=== PATIENT | male | born 1960 | race African-American/Black ===

== ENCOUNTER 2022-02-27 21:36 | Inpatient (IN) | payer OTHER ==
[2022-02-27 22:34] VITALS: BMI 23.3
[2022-02-27] MEDS ORDERED: ACETAMINOPHEN 325 MG TABLET (FP) PO PRN ×2 (23:08)
[2022-02-27] MEDS ORDERED: BENZOCAINE/MENTHOL (CHLORASEPTIC ) LOZENGE MM PRN (23:08)
[2022-02-27] MEDS ORDERED: LOPERAMIDE HCL 2 MG CAPSULE PO PRN (23:08)
[2022-02-27] MEDS ORDERED: guaiFENesin 200 MG/10 ML 10 ML UNIT-DOSE CUPS PO PRN (23:08)
[2022-02-27] MEDS ORDERED: NICOTINE 10 MG CARTRIDGE (INHALER) IH PRN (23:08)
[2022-02-27] MEDS ORDERED: NICOTINE POLACRILEX 2 MG GUM BUC PRN (23:08)
[2022-02-27] MEDS ORDERED: P-EPHED 60MG/TRIPROLIDI 2.5MG TABLET PO PRN (23:08)
[2022-02-27] MEDS ORDERED: IBUPROFEN 400 MG TABLET (FP) PO PRN (23:08)
[2022-02-27] MEDS ORDERED: MAGNESIUM CITRATE 300 ML BOTTLE PO PRN (23:08)
[2022-02-27] MEDS ORDERED: MAG HYDROX/AL HYDROX/SIMETH 30 ML UNIT-DOSE CUP PO PRN (23:08)
[2022-02-27] MEDS ORDERED: ONDANSETRON *ODT* 4 MG TABLET SL PRN (23:08)
[2022-02-27] MEDS ORDERED: DICYCLOMINE HCL 10 MG CAPSULE PO PRN (23:08)
[2022-02-27] MEDS ORDERED: BISMUTH SUBSALICYLATE 524 MG/30 ML PO PRN (23:08)
[2022-02-27] MEDS ORDERED: IBUPROFEN 600 MG TABLET (FP) PO PRN (23:08)
[2022-02-27] MEDS ORDERED: MAGNESIUM HYDROX 2400MG/30ML ORAL SUSPENSION 30 ML CUP PO PRN (23:08)
[2022-02-27] MEDS ORDERED: NICOTINE 7 MG/24 HOURS TOPICAL PATCH TD PRN (23:08)
[2022-02-28] MEDS: hydrOXYzine PAMOATE 25 MG CAPSULE (FP) PO PRN ×3 (03:43→22:11)
[2022-02-28] MEDS: METHOCARBAMOL 500 MG TABLET PO PRN ×3 (03:43→22:11)
[2022-02-28] MEDS: diazePAM 5 MG TABLET PO PRN ×2 (05:38→09:52)
[2022-02-28] MEDS: PRENATAL VITAMINS W/ FOLIC ACID TABLET (FP) PO SCH (09:52)
[2022-02-28] MEDS ORDERED: chlordiazePOXIDE HCL 25 MG CAPSULE PO PRN (12:01)
[2022-02-28] MEDS: chlordiazePOXIDE HCL 25 MG CAPSULE PO SCH ×2 (18:16→22:11)
[2022-02-28] MEDS ORDERED: MELATONIN 5 MG TABLETS PO SCH (22:00)
[2022-02-28] MEDS ORDERED: SUVOREXANT 10 MG TABLET PO PRN (22:00)
[2022-02-28] MEDS ORDERED: TAMSULOSIN HCL 0.4 MG CAP PO SCH (22:00)
[2022-02-28] MEDS ORDERED: QUEtiapine FUMARATE 50 MG TABLET PO SCH (22:00)
[2022-02-28] MEDS ORDERED: THIAMINE HCL 100 MG TABLET (FP) PO SCH (22:00)
[2022-03-01] MEDS: chlordiazePOXIDE HCL 25 MG CAPSULE PO SCH ×3 (06:31→20:01)
[2022-03-01] MEDS: PRENATAL VITAMINS W/ FOLIC ACID TABLET (FP) PO SCH (10:19)
[2022-03-01] MEDS: hydrOXYzine PAMOATE 25 MG CAPSULE (FP) PO PRN (10:19)
[2022-03-01 12:52] LABS: HEMATOCRIT 41.6 % (35.4-49); HEMOGLOBIN 13.9 GM/dL (11.7-16.9); MCH 35.2 pg (25.7-33.7); MCHC 33.4 g/dl (32.0-35.9); MEAN CELL VOLUME 105.4 fl (80-96); MEAN PLT VOLUME 9.2 fl (7.5-11.1); PLATELET COUNT 126 10^3/uL (134-434); RBC 3.95 M/mm3 (4.00-5.60); RDW 14.5 % (11.9-15.9); WHITE BLOOD COUNT 2.9 K/mm3 (4.0-10.0)
[2022-03-01 13:30] LABS: ALBUMIN 3.4 g/dl (3.4-5.0); BLOOD UREA NITROGEN 17.1 mg/dL (7-18); CALCIUM 9.5 mg/dL (8.5-10.1)
[2022-03-01 13:33] LABS: CREATININE 0.8 mg/dL (0.55-1.3)
[2022-03-01 13:35] LABS: BILIRUBIN,TOTAL 0.8 mg/dL (0.2-1); TOT PROT 6.4 g/dl (6.4-8.2)
[2022-03-01 13:51] LABS: HIV INTERPRETATION NEGATIVE (NEGATIVE)
[2022-03-01 19:13] VITALS: BP 112/75; PULSE 77; TEMP 96.9
[2022-03-02] MEDS ORDERED: chlordiazePOXIDE HCL 10 MG CAPSULE PO PRN
[2022-03-02] MEDS ORDERED: chlordiazePOXIDE HCL 10 MG CAPSULE PO SCH (05:00)
[2022-03-03] MEDS ORDERED: chlordiazePOXIDE HCL 10 MG CAPSULE PO SCH (05:00)
[2022-03-04] MEDS ORDERED: chlordiazePOXIDE HCL 10 MG CAPSULE PO ONE (05:00)
== END 2022-03-01 20:34 | disposition left against medical advice (07) | DRG 894 ==
LOC: YASAS 21:36 → Y6N 02-28 01:39
PROVIDERS: ADMIT Allergy & Immunology; ATTEND Allergy & Immunology
PROC: HZ2ZZZZ Detoxification Services for Substance Abuse Treatment (ICD-10-PCS; principal; 2022-02-28)
DX: F10.230 Alcohol dependence with withdrawal, uncomplicated (principal); F17.210 Nicotine dependence, cigarettes, uncomplicated; F10.280 Alcohol dependence with alcohol-induced anxiety disorder; F31.9 Bipolar disorder, unspecified; M54.50 Low back pain, unspecified; G89.29 Other chronic pain; N40.0 Benign prostatic hyperplasia without lower urinary tract symptoms; Z85.46 Personal history of malignant neoplasm of prostate; Z91.410 Personal history of adult physical and sexual abuse
CPT/HCPCS: 36415; 80053; 85027; 86593; 86780; 87389; C9803-CS; U0003; U0005